=== PATIENT | female | born 2005 | race Caucasian/White ===

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

== ENCOUNTER → 2025-07-18 08:53 | Outpatient (REF) | payer BC, SELFPAY ==
[2025-07-18 12:30] LABS: Hematocrit 40.7 % (37.0-47.0); Hemoglobin 13.7 g/dL (12.0-16.0); Mean Corp Hgb Conc. 33.7 g/dL (33.0-37.0); Mean Corpuscular Volume 86.6 fL (81.0-99.0); Nucleated Red Blood Cells % 0 %; Platelet Count 315 10^3/uL (130-400); Red Cell Dist. Width 12.4 % (11.5-14.5)
[2025-07-18 12:54] LABS: ALT (SGPT) 22 U/L (0-35); AST (SGOT) 24 U/L (14-36); Albumin 4.9 g/dl (3.5-5.0); Alkaline Phosphatase 45 U/L (38-126); Blood Urea Nitrogen 14 mg/dl (7-17); Calcium 9.4 mg/dl (8.4-10.2); Carbon Dioxide 25 mmol/L (22-30); Chloride 104 mmol/L (98-107); Glucose 89 mg/dl (70-99); HDL Cholesterol 72 mg/dl; LDL Cholesterol, Calculated 74 mg/dl; Potassium 4.7 mmol/L (3.5-5.1); Sodium 138 mmol/L (135-145); Total Protein 7.4 g/dl (6.3-8.2); Very Low Density Lipoprotein 13 mg/dl (0-30); eGFR > 60.00
[2025-07-18 13:16] LABS: TSH 1.77 uIU/ml (0.47-4.68)
== END ==
LOC: HWLAB 08:53
PROVIDERS: ATTENDING PHYSICIAN Nurse Practitioner Family
DX: E04.1 Nontoxic single thyroid nodule (principal); Z76.89 Persons encountering health services in other specified circumstances; Z13.220 Encounter for screening for lipoid disorders; F41.9 Anxiety disorder, unspecified
CPT/HCPCS: 36415; 80053; 80061; 84443; 85025